=== PATIENT | male | born 1970 | race Caucasian/White ===

== ENCOUNTER 2018-04-02 15:24 | Emergency (ER) | payer MEDICAID, SELFPAY ==
[2018-04-02 15:25] VITALS: BP 125/78; PULSE 43; RESP 17; TEMP 35.5; O2SAT 98; BMI 28.4
--- NOTE | 2018-04-02 15:34 | EKG12_ITS ---
Test Reason : CP Blood Pressure : / mmHG Vent. Rate : 043 BPM Atrial Rate : 043 BPM P-R Int : 180 ms QRS Dur : 100 ms QT Int : 506 ms P-R-T Axes : 059 044 074 degrees QTc Int : 427 ms Marked sinus bradycardia Inferior infarct , age undetermined Abnormal ECG Confirmed by AUBREY NIELSON, ZACHARIAH ([id number]), multimedia editor ELLEN RODRIGUEZ ([id number]) on 04/03/2018 12:57:44 PM Referred By: DUY Confirmed By:ZACHARIAH BURGOS MD
--- NOTE | 2018-04-02 15:40 | RAD_ITS ---
STUDY: X-RAY CHEST REASON FOR EXAM: Male, 47 years old. Chest pain TECHNIQUE: Single AP portable view of the chest. COMPARISON: 05/22/2011 FINDINGS: EKG leads overlie the chest Lungs are expanded with superimposed interstitial edema and possible lingular infiltrate, follow-up recommended to assure resolution. Normal size heart. Normal mediastinum and augustin. Normal visualized pulmonary arteries. Normal visualized aortic arch and descending thoracic aorta. Normal visualized thoracic spine. Normal visualized ribs, clavicles, and shoulders. There is no demonstrated abnormality of the visualized soft tissue structures of the upper abdomen. RAD/Chest 1 View (Portable) IMPRESSION: Interstitial edema with likely infiltrate, follow-up recommended to assure resolution Electronically Signed: Ian Hendricks MD at 16:04 EDT , Service support ,
--- NOTE | 2018-04-02 15:45 | ED.DCSUM_ITS ---
- ER Visit Summary Date of Service: 04/02/18 Chief Complaint: Syncope History of Present Illness: The patient is a 47 M for schizophrenia for which currently is on no medications. He does not have a primary care physician. Patient was brought in by squad was called by the family due to the syncopal event. According to the patient's mother is giving most of the history he does not have a significant history of medical problems. Today he had a syncopal event. Inside the house. He had a second one in the garage. However he was not having any chest pain, headache or abdominal pain. He has not been recently ill. He did recently have a facial abscess drained at [place] [facility]. He denies any fever or melena. Physical Examination: Middle-aged male vital signs are stable his blood pressure is 125/78 his pulse ox is 98 and he is afebrile. He has bradycardic in the 40s but is maintaining good blood pressure with it. He is mentating with that. No airway compromise. H EENT exam unremarkable except for poor dentition. No signs of trauma. Pupils round reactive light. Equal and symmetrical. Neck nontender no meningismus. No lymphadenopathy. Lungs clear to auscultation bilaterally. Heart regular rhythm rate of about 45 no murmur. Chest wall nontender. Abdomen soft and nontender. Normal bowel sounds. No pulsatile mass. No masses. Nondistended. Soft. Moving all 4 extremities. Equal symmetrical radial pulses. Calves nontender without edema or cords. Back exam nontender. Neurologically he is awake and alert. He does follow commands. He has no focal motor deficits. Test Results: EKG shows a sinus bradycardia rate of 43. With no acute signs of HI or ischemia. Chest x-ray shows interstitial edema. Read both by myself the radiologist. CT of his brain without contrast shows a left frontal lobe mass about 2 cm. Small amount of edema. But no shift. I did discuss this with the family and they understand that we do not know currently if this is benign or malignant if the primary brain tumor or metastases. They understand only to be significant further evaluation of this and additional imaging. Reviewed by me read by the radiologist. EKG sinus bradycardia rate of 43. No dysrhythmia otherwise. No ischemia. White count elevated 14 H&H 15 and 46 no bands. Electrolytes unremarkable normal creatinine and gap. Troponin normal. Lactic acid 1.3. Emergency Department Course and Treatment: Middle-aged male with a syncopal event. Will undergo a cardiac workup. Treatment Plan: Due to the patient's brain mass on CT he will be transferred I spoke to the family they choose [facility]. I very spoken with the transfer line and they have accepted him. Disposition: Admission Impression: Acute syncope Sinus bradycardia Brain mass on CAT scan of uncertain etiology This note was generated with [employer] dictation software. It may contain incorrect words, spelling, and punctuation that were not noted in review of the chart prior to signing ED Disposition - Plan for ED Patient: Chief Complaint: Chest Pain Referrals: Care Physician,No Primary [Primary Care Provider] -
[2018-04-02 15:48] VITALS: O2SAT 99
[2018-04-02 15:48] LABS: Absolute Lymphocyte Count 1.64 X10^3/ul (0.83-4.51); Basophil# 0.04 X10^3/uL; Basophil% 0.3 % (0-1); Eosinophil# 0.21 X10^3/uL; Eosinophils% 1.5 % (0-5); Hematocrit 46.1 % (40-54); Hemoglobin 15.1 g/dl (13.0-16.5); Lymphocyte # 1.64 X10^3/ul (4.0); Lymphocyte % 11.4 % (19-41); Mean Corp Hgb Conc 32.8 g/gl (32-36); Mean Corpuscular Hgb 28.7 pg (27.0-32.0); Mean Corpuscular Volume 87.6 fL (80-94); Mean Platelet Vol. 8.9 fl (6.2-12.0); Monocyte# 0.58 X10^3/uL; Neutrophil # 11.95 X10^3/uL (2.7-7.7); Neutrophil % 82.7 % (47-70); Platelet Count 237 K/mm3 (150-450); RBC Distribution Width CV 13.7 % (11.6-14.6); Red Blood Count 5.26 M/mm3 (4.6-6.2); White Blood Count 14.4 K/mm3 (4.4-11.0)
[2018-04-02 15:49] LABS: POSITIVE COUNT NO; POSITIVE DIFFERENTIAL NO; POSITIVE MORPHOLOGY NO
[2018-04-02] MEDS: Aspirin 81 MG TAB.CHEW 324 MG PO (15:49)
[2018-04-02 16:06] LABS: Anion Gap 7 (5-15); BUN 11 mg/dL (7-18); BUN/Creat Ratio 13.3 RATIO (10-20); Calcium,Total 8.6 mg/dL (8.5-10.1); Chloride 105 mmol/L (98-107); Creatinine, Serum 0.83 mg/dL (0.70-1.30); EST Glomerular Filtration Rate 105 mL/min (>60); Est Glom Filt Rate - Afr Amer 126 mL/min (>60); Estimated Creatinine Clearance 104.16 ml/min; Glucose 147 mg/dL (74-106); Potassium 3.8 mmol/L (3.5-5.1); Sodium Level 138 mmol/L (136-145)
--- NOTE | 2018-04-02 16:09 | CT_ITS ---
STUDY: CT BRAIN WITHOUT CONTRAST REASON FOR EXAM: Male, 47 years old. Headache. Syncope. RADIATION DOSAGE (If Supplied By Facility): CTDIvol = ( 44.99 ) mGy, DLP = ( 812.98 ) mGycm TECHNIQUE: Transaxial CT imaging of the brain was performed without administration of intravenous contrast material. Individualized dose optimization techniques were used for this CT. COMPARISON: None. FINDINGS: There is a 2.0 x 2.0 x 1.8 cm rounded hypodensity with a thin mildly hyperdense surrounding rim in the left frontal lobe (image 25 series 2 and image 27 series 601). Further evaluation with a contrast-enhanced CT or MRI is recommended to evaluate for an intracranial mass. There is no acute bleed or infarct. There are normal white matter tracts. The ventricles are normal in configuration. There is no hydrocephalus. There is mild mucosal hypertrophy in the left ethmoid sinus. The visualized paranasal sinuses are otherwise clear. The mastoid air cells are well aerated. There is no skull fracture. CT/Brain/Head without Contrast IMPRESSION: 2.0 x 2.0 x 1.8 cm rounded hypodensity with a thin mildly hyperdense surrounding rim in the left frontal lobe. Further evaluation with a contrast-enhanced CT or MRI is recommended to evaluate for an intracranial mass. No acute bleed or infarct. Mild left ethmoid sinusitis. N.B. : The above information has been verbally conveyed by Brandon Gaytan to Fabricio Jose on 04/02/2018 16:38:47 (ET). Electronically Signed: Brandon Gaytan, at 16:32 EDT Tel , Service support ,
[2018-04-02 16:31] LABS: Lactic Acid 1.3 mmol/L (0.4-2.0)
[2018-04-02 16:33] VITALS: BMI 28.4
[2018-04-02 16:37] VITALS: BP 119/75; PULSE 45; RESP 18; O2SAT 98
[2018-04-02 17:03] VITALS: BP 148/90; PULSE 52; RESP 18; O2SAT 98
[2018-04-02 18:22] VITALS: BP 120/99; PULSE 65; RESP 18; O2SAT 97
[2018-04-02 18:45] VITALS: BP 120/77; PULSE 65; RESP 18; O2SAT 97
== END 2018-04-02 18:15 | disposition short-term general hospital (02) ==
PROVIDERS: Emergency Provider Emergency Medicine
DX: R55 Syncope and collapse (principal); R00.1 Bradycardia, unspecified; G93.89 Other specified disorders of brain; F20.9 Schizophrenia, unspecified; Z72.0 Tobacco use
CPT/HCPCS: 70450; 71045; 80048; 83605; 84484; 85025; 93005; 99285

== ENCOUNTER 2018-04-13 19:39 | Inpatient (IN) | payer MEDICAID, SELFPAY ==
[2018-04-13 19:57] VITALS: BP 130/88; PULSE 65; RESP 20; TEMP 36.6; O2SAT 94; BMI 27.5
[2018-04-13 21:58] VITALS: BMI 25.6
[2018-04-13 22:00] VITALS: BP 124/87; PULSE 63; RESP 18; TEMP 36.6; O2SAT 95
[2018-04-13] MEDS: Atorvastatin Calcium 20 MG Tablet PO (22:27)
[2018-04-13] MEDS: levETIRAcetam 1,000 MG Tablet 1000 MG PO (22:27)
--- NOTE | 2018-04-14 00:56 | NURSING ---
pt resting quietly and family member at bedside for safety. Pt impulsive and has set off alarm several times with family reassuring pt to await staff assistance.
[2018-04-14 06:05] LABS: Hematocrit 45.4 % (40-54); Hemoglobin 15.2 g/dl (13.0-16.5); Mean Corp Hgb Conc 33.5 g/gl (32-36); Mean Corpuscular Hgb 29.1 pg (27.0-32.0); Mean Platelet Vol. 9.2 fl (6.2-12.0); Platelet Count 232 K/mm3 (150-450); RBC Distribution Width CV 14.6 % (11.6-14.6); RBC Distribution Width SD 46.4 fl (35.1-43.9); Red Blood Count 5.22 M/mm3 (4.6-6.2); White Blood Count 13.3 K/mm3 (4.4-11.0)
[2018-04-14 06:09] LABS: International Normalized Ratio 0.9; Prothrombin Time (Protime)PT. 12.4 SECONDS (11.7-14.9)
[2018-04-14 06:25] LABS: Scan Indicated on CBC? Y/N NO
[2018-04-14 06:33] LABS: Anion Gap 9 (5-15); BUN 27 mg/dL (7-18); BUN/Creat Ratio 41.5 RATIO (10-20); Calcium,Total 8.6 mg/dL (8.5-10.1); Chloride 104 mmol/L (98-107); Creatinine, Serum 0.65 mg/dL (0.70-1.30); EST Glomerular Filtration Rate 139 mL/min (>60); Est Glom Filt Rate - Afr Amer 168 mL/min (>60); Estimated Creatinine Clearance 150.89 ml/min; Glucose 82 mg/dL (74-106); Potassium 4.2 mmol/L (3.5-5.1); Sodium Level 142 mmol/L (136-145)
[2018-04-14 08:19] VITALS: O2SAT 96
[2018-04-14 09:21] VITALS: BP 110/70; PULSE 73; RESP 18; TEMP 36.6; O2SAT 95
[2018-04-14] MEDS: levETIRAcetam 1,000 MG Tablet 1000 MG PO ×2 (09:25→20:24)
[2018-04-14] MEDS: Enoxaparin 40 MG/0.4 ML Syringe SC (09:26)
--- NOTE | 2018-04-14 10:07 | PCM.HP.COS ---
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 He has a history of HTN, HLD, and schizophrenia. He was admitted to [facility] on 04/03 with nausea, vomiting, and dizziness. MRI showed a left cerebellar infarct, and a left frontal lobe and basal ganglia intraaxial lesions, which was suspicious for a glioblastoma. On 04/07 a left stereotactic craniotomy for tissue removal and biopsy. 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 EEG was done and supported the diagnosis of bilateral cortical dysfunction, worse on the left, there was no epileptiform activity or seizures noted. A BENNETT was preformed and showed no shunting, thrombus or endocarditis. He was started on Keppra for Seizure preventions and Decadron. He has some right sided weakness of his upper extremity. requires the assistance of one with the use of a walker. He lives with his mother and brother in a two story home with 12 steps to get to his bedroom area. He was previously completely functionally independent and is admitted to the rehab unit in order to restore his previous level of functional independence. Past Medical History Past Medical History (Chronic Problems): Chronic Problems Tobacco use (Chronic) Allergies No Known Allergies Allergy (Verified 04/02/18 15:28) Home Medications: Ambulatory Orders Medication Instructions Recorded Atorvastatin Calcium [Lipitor] 20 mg PO QHS 04/13/18 Dexamethasone [Decadron] 2 mg PO BID 04/13/18 levETIRAcetam tablet [Keppra 1,000 mg PO Q12H 04/13/18 tablet] Surgical History: - - Right hand surgery Psychiatric History: Schizophrenia Lives: With Family Smoking Status: Light Smoker (<10/day) Alcohol: None Drugs: None Review of Systems Constitutional: Denies: Chills, Fever, Weight Change HEENT: Denies: Head Aches, Sinus Congestion, Sinus Drainage Cardiovascular: Denies: Chest Pain, Palpitations Respiratory: Denies: Cough, Shortness of breath at rest, Sputum production Gastrointestinal: Denies: Abdominal Pain, Nausea, Vomiting Genitourinary: Denies: Dysuria Musculoskeletal: Denies: Joint Pain, Joint Tenderness Skin: Denies: Rash, Wounds Neurological: Denies: Numbness, Tingling, Focal weakness Psychiatric: Denies: Anxiety, Depression, Homicidal Ideations, Suicidal Ideations Hematologic/ Lymphatic: Denies: Easy Bruising, Easy Bleeding VTE Information - Inpt Only VTE Present on Admission: No VTE Mechan Device Prophylaxis: SCD's, Knee High CHRISTINE Hose VTE Pharm Prophylaxis ordered?: Yes - Physical Exam General: Alert, Oriented x3, Cooperative HEENT: Atraumatic, PERRLA, EOMI, Normocephalic Neck: Supple, No JVD, Negative Carotid Bruits Lungs: Clear to auscultation, Normal air movement Cardiovascular: Regular rate, No murmurs Abdomen: Bowel Sounds Present, Soft, Non Tender Extremities: No edema, Capillary Refill Less than 3 Seconds Skin: No rashes, No breakdown Musculoskeletal: No Tenderness to Palpation of Joints or Extremities Neurological: Cranial nerves II-XII grossly intact Psych/Mental Status: Normal Affect, Appropriate Vital Signs Temp Pulse Resp BP Pulse Ox 97.9 F 73 18 110/70 95 04/14/18 09:21 04/14/18 09:21 04/14/18 09:21 04/14/18 09:21 04/14/18 09:21 Oxygen Delivery Method Room Air Weight: 82.01 kg Body Mass Index (BMI) 28.7 Intake and Output for Last 24 Hours 04/12/18 04/13/18 04/14/18 23:59 23:59 23:59 Intake Total 800 / 800 Output Total 600 / 600 Balance 200 / 200 Laboratory Tests Past 24 Hrs 04/14/18 04/14/18 04/14/18 05:05 05:05 05:05 WBC 13.3 H RBC 5.22 Hgb 15.2 Hct 45.4 MCV 87.0 MCH 29.1 MCHC 33.5 RDW 14.6 RDW Differential 46.4 H Plt Count 232 MPV 9.2 PT 12.4 INR 0.9 Sodium 142 Potassium 4.2 Chloride 104 Carbon Dioxide 29.0 Anion Gap 9 BUN 27 H Creatinine 0.65 L Estim Creat Clear Calc 150.89 Est GFR (MDRD) Af Amer 168 Est GFR (MDRD) Non-Af 139 BUN/Creatinine Ratio 41.5 H Glucose 82 Calcium 8.6 Active Medications Hydrocodone Bitart/Acetaminophen ([place] 5mg-325mg) 1 tablet PO Q6H PRN PRN PRN Reason: MOD-SEVERE PAIN (4-10/10) Atorvastatin Calcium (Lipitor) 20 mg PO QHS [facility] Last Admin: 04/13/18 22:27 Dose: 20 mg Bisacodyl (Dulcolax) 10 mg RECTAL .PRN X 1 PRN PRN Reason: Constipation [facility] Last Admin: 04/14/18 09:25 Dose: 2 mg Enoxaparin Sodium (Lovenox) 40 mg SC DAILY [facility] Last Admin: 04/14/18 09:26 Dose: 40 mg Levetiracetam (Keppra Tablet) 1,000 mg PO BID [facility] Last Admin: 04/14/18 09:25 Dose: 1,000 mg Lorazepam (Ativan) 0.25 mg PO QHS PRN PRN PRN Reason: AGITATION Magnesium Hydroxide (Milk Of Magnesia) 30 ml PO .PRN X 1 PRN PRN Reason: Constipation Assessment/Plan Debility s/p Left PICA distribution cerebellar infarct, and resection of glioblastoma, grade IV. Goal of rehab is evangelical of functional independence. Plan: - Physical therapy for gait and balance - Occupational Therapy for ADLs - Speech therapy - As needed analgesics - Bowel protocol - Stroke prevention on ASA, and Statin - DVT prophylaxis: SCDs, Lovenox - Hypertension - currently not on any medications, BP stable, Keep BP < 130/80 mmHg - BENNETT showed no shunting, Thrombus, or evidence of endocarditis - Hyperlipidemia - Continue home dose of atorvastatin, Chol = 192, LDL = 131 - HA1c = 5.8, Goal Hba1c <7% - Brain tumor s/p resection, Keppra 500mg BID for sz ppx, and Decadron 2mg BID - Hx of Schizophrenia - stable without psychosis noted at this time - Left eye => Double vision - eye patch as needed, slight Ptosis continue to monitor if need will order eye drops
--- NOTE | 2018-04-14 12:09 | PN_ITS ---
Subjective: Patient is a 47-year-old male with a history of hyperlipidemia. He was admitted to the rehab unit for rehab after he had surgery for a brain tumor status post resection. Hospitalist service was consulted for medical management. Seen and examined. He was sitting comfortably in a chair and had no complaints. He denies any fever or chills, cough or chest pain, shortness of breath, abdominal pain, diarrhea vomiting. He has been tolerating rehab well. Review of systems otherwise negative. Vitals/I&O's: Vital Signs Temp Pulse Resp BP Pulse Ox 97.9 F 73 18 110/70 95 04/14/18 09:21 04/14/18 09:21 04/14/18 09:21 04/14/18 09:21 04/14/18 09:21 Oxygen Delivery Method Room Air Weight: 180 lb 12.817 oz Body Mass Index (BMI) 28.7 Intake and Output for Last 24 Hours 04/12/18 04/13/18 04/14/18 23:59 23:59 23:59 Intake Total 800 / 800 Output Total 600 / 600 Balance 200 / 200 General: Alert, Oriented x3, Cooperative, No apparent distress HEENT: Atraumatic, PERRLA, EOMI, Normocephalic Oral: Moist Mucosa Neck: Supple, No JVD, Negative Carotid Bruits Lungs: Clear to auscultation, Normal air movement, No rhonchi, No wheeze, No rales Cardiovascular: Regular rate, Regular Rhythm, Normal S1, Normal S2, No murmurs Abdomen: Bowel Sounds Present, Soft, Non Tender, Non-Distended, No Hepato- splenomegaly Extremities: No edema, Capillary Refill Less than 3 Seconds Skin: - - healing scar on forehead, with juan manuel in place. Musculoskeletal: No Tenderness to Palpation of Joints or Extremities Lymphatic: No Cervical, Supraclavicular, or Inguinal Adenopathy Neurological: Cranial nerves II-XII grossly intact, Motor Exam 5/5 strength throughout Psych/Mental Status: Normal Affect, Appropriate, Alert and oriented to time, place, person, mood and affect Laboratory Results 04/14/18 05:05: WBC 13.3 H, RBC 5.22, Hgb 15.2, Hct 45.4, MCV 87.0, MCH 29.1, MCHC 33.5, RDW 14.6, RDW Differential 46.4 H, Plt Count 232, MPV 9.2 04/14/18 05:05: PT 12.4, INR 0.9 04/14/18 05:05: Sodium 142, Potassium 4.2, Chloride 104, Carbon Dioxide 29.0, Anion Gap 9, BUN 27 H, Creatinine 0.65 L, Estim Creat Clear Calc 150.89, Est GFR (MDRD) Af Amer 168, Est GFR (MDRD) Non-Af 139, BUN/Creatinine Ratio 41.5 H, Glucose 82, Calcium 8.6 Current Medications Hydrocodone Bitart/Acetaminophen ([place] 5mg-325mg) 1 tablet PO Q6H PRN PRN PRN Reason: MOD-SEVERE PAIN (4-1010) Atorvastatin Calcium (Lipitor) 20 mg PO QHS [facility] Last Admin: 04/13/18 22:27 Dose: 20 mg Bisacodyl (Dulcolax) 10 mg RECTAL .PRN X 1 PRN PRN Reason: Constipation [facility] Last Admin: 04/14/18 09:25 Dose: 2 mg Enoxaparin Sodium (Lovenox) 40 mg SC DAILY [facility] Last Admin: 04/14/18 09:26 Dose: 40 mg Levetiracetam (Keppra Tablet) 1,000 mg PO BID [facility] Last Admin: 04/14/18 09:25 Dose: 1,000 mg Lorazepam (Ativan) 0.25 mg PO QHS PRN PRN PRN Reason: AGITATION Magnesium Hydroxide (Milk Of Magnesia) 30 ml PO .PRN X 1 PRN PRN Reason: Constipation Medical Necessity - Tobacco Use Smoking Status: Light Smoker (<10/day) Assessment/Plan 1. Brain tumor s/p resection * stable. * having intensive physical therapy * on Keppra for seizures * per nurse, tumor suspected to be glioblastoma, but awaiting pathology confirmation. * on PO dexamethasone * on [place] for pain 2. Hyperlipidemia * on atorvastatin * 3. DVT prophylaxis: lovenox Thank you for the courtesy of the consult. We will continue to follow with you. Code Visit Inpatient E&M: 53924 Subs Hosp L2
--- NOTE | 2018-04-14 14:40 | CT_ITS ---
STUDY: CT BRAIN WITHOUT CONTRAST REASON FOR EXAM: Male, 47 years old. CVA, craniotomy. RADIATION DOSAGE (If Supplied By Facility): CTDIvol = ( 44.99 ) mGy, DLP = ( 880.47 ) mGycm TECHNIQUE: Transaxial CT imaging of the brain was performed without administration of intravenous contrast material. Coronal and sagittal 2-D MPR Individualized dose optimization techniques were used for this CT. COMPARISON: CT head 06/11/2011, 04/02/2018. FINDINGS: Stable chronic prominent mucous retention cyst within the left posterior ethmoid sinuses. Paranasal sinuses acutely clear. Mastoid air cells and middle ear cavities clear. Craniofacial osseous structures acutely intact. Left frontal craniotomy. Extra cranial soft tissues including orbital contents exhibit no acute process. In the operative bed left frontal, irregular oval low density partially fluid-filled cavity measures approximately 3.5 x 2.8 x 2.7 cm, containing a tiny focus of gas, minimal hyperdense soft tissue at its inferior most margin, no acute bleed, minimal subdural subacute blood products immediately deep to the craniotomy, no associated mass effect. CT/Brain/Head without Contrast IMPRESSION: Left frontal resection cavity as described above. No evidence of acute postoperative complication. There is no acute intracranial bleed, midline shift or other significant mass effect. Electronically Signed: David Jones, at 15:58 EDT Tel , Service support ,
[2018-04-14] MEDS: Atorvastatin Calcium 40 MG Tablet PO (21:25)
[2018-04-14 22:00] VITALS: BP 119/67; PULSE 65; RESP 18; TEMP 37; O2SAT 95
[2018-04-15 07:50] VITALS: BP 115/72; PULSE 60; RESP 18; TEMP 36.9; O2SAT 96
[2018-04-15] MEDS: Enoxaparin 40 MG/0.4 ML Syringe SC (08:06)
[2018-04-15] MEDS: Aspirin 81 MG TAB.CHEW PO (08:06)
[2018-04-15] MEDS: levETIRAcetam 1,000 MG Tablet 1000 MG PO ×2 (08:06→20:10)
[2018-04-15] MEDS: Senna/Docusate Sodium 1 Tablet 2 TABLET PO ×2 (10:12→20:11)
--- NOTE | 2018-04-15 10:15 | PCM.RU.PYE ---
Admission Information Status Changes from Prescreening?: No changes Identified Actual Problem List:: Falls, Mobility Impaired, Self Care Deficit, Ineffective Communication Potential Problem List:: DVT, Bleeding, Infection, UTI, Aspiration, Falls, Skin Integrity, Depression Risk of Complications DVT: LMWH, CHRISTINE Hose, Sequential Compression Device Bleeding: Monitor Lab Values, Nursing to Teach Precautions for anti-coagulation therapy., Wound, if applicable, to be assessed every shift., Stroke patients assessed for lethargy or change in status. Infection: Clinical Staff to Monitor for S/S of infection:, S/S of infection include fever, redness, warmth, etc. Urinary Tract Infection: Monitor for frequency, burning, discomfort, or incontinence., Nursing will obtain urine sample for urinalysis and C&S when ordered. Aspiration: Clinical staff will monitor for coughing, drooling, congestion., Speech will evaluate swallowing and dsyphasia., Nursing will monitor patient swallowing during meals. Falls: Patient will be evaluated for Fall Precautions, Patient will be placed on Fall Precautions as indicated per protocol. Skin Breakdown: Nursing will assess skin daily using assessment tool., Nursing will place on Skin Breakdown Precautions as indicated. Pain: Clinical staff will assess patient's pain level per protocol., Medications will be given, if needed, and the pain level reassessed., Other methods: Massage, distraction, decrease stimulus, etc. used PRN. Plan of Care Patient requires physician specializing in physical medicine and rehab oversight to provide close medical supervision of rehab issues including: Pain Management, Sleep Problems, Bowel and Bladder, Medical and co-morbidity Management, DVT prophylaxis, Rehabilitation Leadership, Coordination of treatment team Patient needs Physical Therapy: For a minimum of 1 hour, At least 5 out of 7 days Patient needs Physical Therapy to improve:: Mobility, Mobility, Mobility, Strengthening, Transfers, Stretching, ROM, Endurance, Stairs, Gait, Balance Patient needs Occupational Therapy: For a minimum of 1 hour, At least 5 out of 7 days Patient needs Occupational Therapy to improve ADL's incl.: Eating, Grooming, Bathing, Dressing, Toileting, Toilet transfers, Community Reintegration, Higher functioning activities, Household tasks, Adaptive Equipment, Splinting, Other activities as determined Patient requires speech therapy: For a minimum of 1 hour, At least 5 out of 7 days Patient requires speech therapy for: Swallowing, Cognition, Language Skills, Compensatory Strategies Patient requires 07/04 Rehabilitation Nursing for: Pain Issues, Identifying and preventing risk factors, Monitoring and reporting current medical conditions, Assisting with ambulation, transfer, and all ADL's, Teaching patients about disease process and medications, Family teaching, Providing safe environment, Bowel and Bladder Issues, Skin integrity, Medication Management Patient needs Chief Counsel/ Case Management for: Discharge Planning, Arranging Home Equipment or Services, Family Interventions Patient needs Dietary and Nutrition Services for: Adequate Nutrition, Nutritional Supplements, Nutritional Education Goals Patient will remain: free from falls, or injury at time of discharge. Patient will perform bed mobility at: MOD I level of assist. Patient will complete transfers from bed to chair at: MOD I level of assist. Patient will ambulate: 100 feet, with MOD I assist, with LRD Patient will complete upper body dressing at: MOD I level of assist. Patient will complete lower body dressing at: MOD I level of assist. Patient will complete toileting at: MOD I level of assist. Patient will perform bathing at: MOD I level of assist. Patient will complete grooming at: MOD I level of assist. Patient will complete home management skills at: MOD I level of assist. Patient will achieve: 12 stairs, at MOD I assist Patient will have pain level of: of 3 or less Patient's skin will: remain intact, free from infection. Patient will receive: adequate nutrition. Discharge Planning Pt Prognosis for Sig. Practical Improv. w/in Reasonable Time: Good Estimated Length of stay (days): 10 Anticipated D/C Destination: Home with Outpt Therapy
--- NOTE | 2018-04-15 10:34 | PCM.PN.NEU ---
Subjective: Patient seen and examined. No new complaints, Tolerating therapy. Denies any blurry vision, double vision, or new focal deficits. Tolerating regular diet, no issues with GI/. - Physical Exam General: Alert, Oriented x3, Cooperative HEENT: Atraumatic, PERRLA, EOMI, Normocephalic Neck: Supple, No JVD, Negative Carotid Bruits Lungs: Clear to auscultation, Normal air movement Cardiovascular: Regular rate, No murmurs Abdomen: Bowel Sounds Present, Soft, Non Tender Extremities: No edema, Capillary Refill Less than 3 Seconds Skin: No rashes, No breakdown Musculoskeletal: No Tenderness to Palpation of Joints or Extremities Neurological: Cranial nerves II-XII grossly intact Psych/Mental Status: Normal Affect, Appropriate, Alert and oriented to time, place, person, mood and affect Vital Signs Temp Pulse Resp BP Pulse Ox 98.4 F 60 18 115/72 96 04/15/18 07:50 04/15/18 07:50 04/15/18 07:50 04/15/18 07:50 04/15/18 07:50 Oxygen Delivery Method Room Air Weight: 82 kg Body Mass Index (BMI) 27.5 Intake and Output for Last 24 Hours 04/13/18 04/14/18 04/15/18 23:59 23:59 23:59 Intake Total 1280 / 1280 680 / 680 Output Total 1600 / 1600 1999 / 1999 Balance -320 / -320 -1320 / -1320 Active Medications Hydrocodone Bitart/Acetaminophen ([place] 5mg-325mg) 1 tablet PO Q6H PRN PRN PRN Reason: MOD-SEVERE PAIN (4-10/10) Aspirin (Aspirin, Baby) 81 mg PO DAILY@0800 [facility] Last Admin: 04/15/18 08:06 Dose: 81 mg Atorvastatin Calcium (Lipitor) 40 mg PO QHS [facility] Last Admin: 04/14/18 21:25 Dose: 40 mg Bisacodyl (Dulcolax) 10 mg RECTAL .PRN X 1 PRN PRN Reason: Constipation Dexamethasone (Decadron) 2 mg PO BIDCM [facility] Last Admin: 04/15/18 08:06 Dose: 2 mg Enoxaparin Sodium (Lovenox) 40 mg SC DAILY [facility] Last Admin: 04/15/18 08:06 Dose: 40 mg Levetiracetam (Keppra Tablet) 1,000 mg PO BID [facility] Last Admin: 04/15/18 08:06 Dose: 1,000 mg Lorazepam (Ativan) 0.25 mg PO QHS PRN PRN PRN Reason: AGITATION Magnesium Hydroxide (Milk Of Magnesia) 30 ml PO .PRN X 1 PRN PRN Reason: Constipation Senna/Docusate Sodium (Senokot-S, Melisa-Colace) 2 tablet PO BID [facility] Last Admin: 04/15/18 10:12 Dose: 2 tablet Medical Necessity - Tobacco Use Smoking Status: Light Smoker (<10/day) Assessment/Plan Debility s/p Left PICA distribution cerebellar infarct, and resection of glioblastoma, grade IV. Goal of rehab is catholic of functional independence. Plan: - Physical therapy for gait and balance - Occupational Therapy for ADLs - Speech therapy - As needed analgesics - Bowel protocol - Stroke prevention on ASA, and Statin - DVT prophylaxis: SCDs, Lovenox - Hypertension - currently not on any medications, BP stable, Keep BP < 130/80 mmHg - BENNETT showed no shunting, Thrombus, or evidence of endocarditis - Hyperlipidemia - Continue home dose of atorvastatin, Chol = 192, LDL = 131 - HA1c = 5.8, Goal Hba1c <7% - Brain tumor s/p resection, Keppra 500mg BID for sz ppx, and Decadron 2mg BID - Hx of Schizophrenia - stable without psychosis noted at this time - Left eye => Double vision - eye patch as needed, slight Ptosis continue to monitor if need will order eye drops
--- NOTE | 2018-04-15 10:37 | PN.NEURO_ITS ---
Subjective: Patient seen and examined. No new complaints, Tolerating therapy. Denies any blurry vision, double vision, or new focal deficits. Tolerating regular diet, no issues with GI/. - Physical Exam General: Alert, Oriented x3, Cooperative HEENT: Atraumatic, PERRLA, EOMI, Normocephalic Neck: Supple, No JVD, Negative Carotid Bruits Lungs: Clear to auscultation, Normal air movement Cardiovascular: Regular rate, No murmurs Abdomen: Bowel Sounds Present, Soft, Non Tender Extremities: No edema, Capillary Refill Less than 3 Seconds Skin: No rashes, No breakdown Musculoskeletal: No Tenderness to Palpation of Joints or Extremities Neurological: Cranial nerves II-XII grossly intact Psych/Mental Status: Normal Affect, Appropriate, Alert and oriented to time, place, person, mood and affect Vital Signs Temp Pulse Resp BP Pulse Ox 98.4 F 60 18 115/72 96 04/15/18 07:50 04/15/18 07:50 04/15/18 07:50 04/15/18 07:50 04/15/18 07:50 Oxygen Delivery Method Room Air Weight: 82 kg Body Mass Index (BMI) 27.5 Intake and Output for Last 24 Hours 04/13/18 04/14/18 04/15/18 23:59 23:59 23:59 Intake Total 1280 / 1280 680 / 680 Output Total 1600 / 1600 1999 / 1999 Balance -320 / -320 -1320 / -1320 Active Medications Hydrocodone Bitart/Acetaminophen ([place] 5mg-325mg) 1 tablet PO Q6H PRN PRN PRN Reason: MOD-SEVERE PAIN (4-10/10) Aspirin (Aspirin, Baby) 81 mg PO DAILY@0800 [facility] Last Admin: 04/15/18 08:06 Dose: 81 mg Atorvastatin Calcium (Lipitor) 40 mg PO QHS [facility] Last Admin: 04/14/18 21:25 Dose: 40 mg Bisacodyl (Dulcolax) 10 mg RECTAL .PRN X 1 PRN PRN Reason: Constipation Dexamethasone (Decadron) 2 mg PO BIDCM [facility] Last Admin: 04/15/18 08:06 Dose: 2 mg Enoxaparin Sodium (Lovenox) 40 mg SC DAILY [facility] Last Admin: 04/15/18 08:06 Dose: 40 mg Levetiracetam (Keppra Tablet) 1,000 mg PO BID [facility] Last Admin: 04/15/18 08:06 Dose: 1,000 mg Lorazepam (Ativan) 0.25 mg PO QHS PRN PRN PRN Reason: AGITATION Magnesium Hydroxide (Milk Of Magnesia) 30 ml PO .PRN X 1 PRN PRN Reason: Constipation Senna/Docusate Sodium (Senokot-S, Melisa-Colace) 2 tablet PO BID [facility] Last Admin: 04/15/18 10:12 Dose: 2 tablet Medical Necessity - Tobacco Use Smoking Status: Light Smoker (<10/day) Assessment/Plan Debility s/p Left PICA distribution cerebellar infarct, and resection of glioblastoma, grade IV. Goal of rehab is evangelical of functional independence. Plan: - Physical therapy for gait and balance - Occupational Therapy for ADLs - Speech therapy - As needed analgesics - Bowel protocol - Stroke prevention on ASA, and Statin - DVT prophylaxis: SCDs, Lovenox - Hypertension - currently not on any medications, BP stable, Keep BP < 130/80 mmHg - BENNETT showed no shunting, Thrombus, or evidence of endocarditis - Hyperlipidemia - Continue home dose of atorvastatin, Chol = 192, LDL = 131 - HA1c = 5.8, Goal Hba1c <7% - Brain tumor s/p resection, Keppra 500mg BID for sz ppx, and Decadron 2mg BID - Hx of Schizophrenia - stable without psychosis noted at this time - Left eye => Double vision - eye patch as needed, slight Ptosis continue to monitor if need will order eye drops
[2018-04-15 15:25] VITALS: O2SAT 97
[2018-04-15 19:48] VITALS: BP 115/73; PULSE 65; RESP 18; TEMP 36.6; O2SAT 93
[2018-04-15] MEDS: Atorvastatin Calcium 40 MG Tablet PO ×2 (20:09→20:10)
--- NOTE | 2018-04-15 20:35 | NURSING ---
pt attempted to get out of bed to look out the window. Alarms set off and nurse repositioned pt in bed and explained the policy for staff assistance to get out of bed. Pt shook his head and nurse brought pt coffee to drink in bed. Nurse set pt up in bed to look at bedside book. Pt denied toileting needs and stated he would stay in bed. Family at bedside and nurse reoriented family to call light system and stressed the importance of staff assistance on this floor to enable pt safety. Reinforcement needs to be administered for pt's rotating family 1:1 care overnight.
--- NOTE | 2018-04-16 04:40 | NURSING ---
Pt setting off alarm several times. Finally, pt asks for a cup of coffee after toileting. Family member came to nurses station stating pt was disturbed by sound of air system. Pt finally settled down after staff chasing after set off alarm for 2 hours. Pt is resting quietly in bed at this time.
[2018-04-16 06:25] VITALS: O2SAT 94
[2018-04-16 09:16] VITALS: BP 121/67; PULSE 68; RESP 18; TEMP 36.4; O2SAT 94
[2018-04-16] MEDS: levETIRAcetam 1,000 MG Tablet 1000 MG PO ×2 (09:59→20:34)
[2018-04-16] MEDS: Enoxaparin 40 MG/0.4 ML Syringe SC (09:59)
[2018-04-16] MEDS: Aspirin 81 MG TAB.CHEW PO (09:59)
[2018-04-16] MEDS: Divalproex Sodium 250 MG Tablet 500 MG PO ×2 (10:00→16:50)
--- NOTE | 2018-04-16 15:11 | CASEMGMT ---
Team meeting held. Patient present as well as patient family. No discharge date set at this time. Patient to continue with further care and treatment on the Inpatient Rehab Unit. Patient plans to discharge home with family at time of discharge. Support given. Will continue to follow. Re-team patient next week. Roxi RIOS, MEDICAL CASE MANAGER
--- NOTE | 2018-04-16 16:12 | PCM.PN.NEU ---
Subjective: Staffed in team meeting. Family at bedside, questions answered. With Physical therapy, patient requires close by stand by assist for getting in and out of bed, and standing, he is very impulsive and moves very quickly, so staff needs to be very careful when working with him. He requires a light hand for stability. He walks with a walker around the unit several times, he then walked around the unit without the walker and had several loss of balance, he was able to catch himself and recover. Today they will try a cane and see how well he does. He has gone up and down 10 steps with a light hand. With Occupational therapy, He is able to do all his own personal care, requiring a light hand for balance when walking to the bathroom and getting in the shower it self then he can handle things from there. With Speech therapy, they are working on memory, language, and attention. They will continue to assist him in these areas. They have concerns for his awareness of what he needs at times he is unable to do this as of yet. With Nursing, showing some signs of depression, will change his Keppra to Depakote, since it is a mood stabilize and will help control possible seizures activity. - Physical Exam General: Alert, Oriented x3, Cooperative HEENT: Atraumatic, PERRLA, EOMI, Normocephalic Neck: Supple, No JVD, Negative Carotid Bruits Lungs: Clear to auscultation, Normal air movement Cardiovascular: Regular rate, No murmurs Abdomen: Bowel Sounds Present, Soft, Non Tender Extremities: No edema, Capillary Refill Less than 3 Seconds Skin: No rashes, No breakdown Musculoskeletal: No Tenderness to Palpation of Joints or Extremities Neurological: Cranial nerves II-XII grossly intact Psych/Mental Status: Normal Affect, Appropriate, Alert and oriented to time, place, person, mood and affect Vital Signs Temp Pulse Resp BP Pulse Ox 97.5 F L 68 18 121/67 H 94 04/16/18 09:16 04/16/18 09:16 04/16/18 09:16 04/16/18 09:16 04/16/18 09:16 Oxygen Delivery Method Room Air Weight: 82 kg Body Mass Index (BMI) 27.5 Intake and Output for Last 24 Hours 04/14/18 04/15/18 04/16/18 23:59 23:59 23:59 Intake Total 1280 / 1280 1100 / 1100 240 / 240 Output Total 1600 / 1600 1999 / 1999 Balance -320 / -320 -900 / -900 240 / 240 Active Medications Hydrocodone Bitart/Acetaminophen ([place] 5mg-325mg) 1 tablet PO Q6H PRN PRN PRN Reason: MOD-SEVERE PAIN (4-10/10) Aspirin (Aspirin, Baby) 81 mg PO DAILY@0800 [facility] Last Admin: 04/16/18 09:59 Dose: 81 mg Atorvastatin Calcium (Lipitor) 40 mg PO QHS [facility] Last Admin: 04/15/18 20:10 Dose: 40 mg Bisacodyl (Dulcolax) 10 mg RECTAL .PRN X 1 PRN PRN Reason: Constipation [facility] Admin: 04/16/18 09:59 Dose: 2 mg Dival[facility]ex Sodium ([facility]ote) [facility] Stop: 04/18/18 17:01 Last Admin: 04/16/18 10:00 Dose: 500 mg Divalproex Sodium (Depakote) 500 mg PO TIIAM [facility] Enoxaparin Sodium (Lovenox) 40 mg SC DAILY [facility] Last Admin: 04/16/18 09:59 Dose: 40 mg Levetiracetam (Keppra Tablet) 1,000 mg PO BID [facility] Stop: 04/18/18 22:01 Last Admin: 04/16/18 09:59 Dose: 1,000 mg Lorazepam (Ativan) 0.25 mg PO QHS PRN PRN PRN Reason: AGITATION Magnesium Hydroxide (Milk Of Magnesia) 30 ml PO .PRN X 1 PRN PRN Reason: Constipation Senna/Docusate Sodium (Senokot-S, Melisa-Colace) 2 tablet PO BID [facility] Last Admin: 04/16/18 09:04 Dose: Not Given Medical Necessity - Tobacco Use Smoking Status: Light Smoker (<10/day) Assessment/Plan Debility s/p Left PICA distribution cerebellar infarct, and resection of glioblastoma, grade IV. Goal of rehab is tenriism of functional independence. Plan: - Physical therapy for gait and balance - Occupational Therapy for ADLs - Speech therapy - As needed analgesics - Bowel protocol - Stroke prevention on ASA, and Statin - DVT prophylaxis: SCDs, Lovenox - Hypertension - currently not on any medications, BP stable, Keep BP < 130/80 mmHg - BENNETT showed no shunting, Thrombus, or evidence of endocarditis - Hyperlipidemia - Continue home dose of atorvastatin, Chol = 192, LDL = 131 - HA1c = 5.8, Goal Hba1c <7% - Brain tumor s/p resection, Keppra 500mg BID for sz ppx, and Decadron 2mg BID, => change Keppra to Depakote 1,000 mg BID x 3 days then increase Depakote to 1,000mg TID. Keep Keppra on board for 3 days with Depakote, then d/c - Hx of Schizophrenia - stable without psychosis noted at this time - Left eye => Double vision - eye patch as needed, slight Ptosis continue to monitor if need will order eye drops
--- NOTE | 2018-04-16 16:24 | PN.NEURO_ITS ---
Subjective: Staffed in team meeting. Family at bedside, questions answered. With Physical therapy, patient requires close by stand by assist for getting in and out of bed , and standing, he is very impulsive and moves very quickly, so staff needs to be very careful when working with him. He requires a light hand for stability. He walks with a walker around the unit several times, he then walked around the unit without the walker and had several loss of balance, he was able to catch himself and recover. Today they will try a cane and see how well he does. He has gone up and down 10 steps with a light hand. With Occupational therapy, He is able to do all his own personal care, requiring a light hand for balance when walking to the bathroom and getting in the shower it self then he can handle things from there. With Speech therapy, they are working on memory, language, and attention. They will continue to assist him in these areas. They have concerns for his awareness of what he needs at times he is unable to do this as of yet. With Nursing, showing some signs of depression, will change his Keppra to Depakote, since it is a mood stabilize and will help control possible seizures activity. - Physical Exam General: Alert, Oriented x3, Cooperative HEENT: Atraumatic, PERRLA, EOMI, Normocephalic Neck: Supple, No JVD, Negative Carotid Bruits Lungs: Clear to auscultation, Normal air movement Cardiovascular: Regular rate, No murmurs Abdomen: Bowel Sounds Present, Soft, Non Tender Extremities: No edema, Capillary Refill Less than 3 Seconds Skin: No rashes, No breakdown Musculoskeletal: No Tenderness to Palpation of Joints or Extremities Neurological: Cranial nerves II-XII grossly intact Psych/Mental Status: Normal Affect, Appropriate, Alert and oriented to time, place, person, mood and affect Vital Signs Temp Pulse Resp BP Pulse Ox 97.5 F L 68 18 121/67 H 94 04/16/18 09:16 04/16/18 09:16 04/16/18 09:16 04/16/18 09:16 04/16/18 09:16 Oxygen Delivery Method Room Air Weight: 82 kg Body Mass Index (BMI) 27.5 Intake and Output for Last 24 Hours 04/14/18 04/15/18 04/16/18 23:59 23:59 23:59 Intake Total 1280 / 1280 1100 / 1100 240 / 240 Output Total 1600 / 1600 1999 / 1999 Balance -320 / -320 -900 / -900 240 / 240 Active Medications Hydrocodone Bitart/Acetaminophen ([place] 5mg-325mg) 1 tablet PO Q6H PRN PRN PRN Reason: MOD-SEVERE PAIN (4-10/10) Aspirin (Aspirin, Baby) 81 mg PO DAILY@0800 [facility] Last Admin: 04/16/18 09:59 Dose: 81 mg Atorvastatin Calcium (Lipitor) 40 mg PO QHS [facility] Last Admin: 04/15/18 20:10 Dose: 40 mg Bisacodyl (Dulcolax) 10 mg RECTAL .PRN X 1 PRN PRN Reason: Constipation [facility] Last Admin: 04/16/18 09:59 Dose: 2 mg [facility]ex [facility] ([facility]ote) [facility] Stop: 04/18/18 17:01 Last Admin: 04/16/18 10:00 Dose: 500 mg Divalproex Sodium (Depakote) 500 mg PO TIWVM [facility] Enoxaparin Sodium (Lovenox) 40 mg SC DAILY [facility] Last Admin: 04/16/18 09:59 Dose: 40 mg Levetiracetam (Keppra Tablet) 1,000 mg PO BID [facility] Stop: 04/18/18 22:01 Last Admin: 04/16/18 09:59 Dose: 1,000 mg Lorazepam (Ativan) 0.25 mg PO QHS PRN PRN PRN Reason: AGITATION Magnesium Hydroxide (Milk Of Magnesia) 30 ml PO .PRN X 1 PRN PRN Reason: Constipation Senna/Docusate Sodium (Senokot-S, Melisa-Colace) 2 tablet PO BID [facility] Last Admin: 04/16/18 09:04 Dose: Not Given Medical Necessity - Tobacco Use Smoking Status: Light Smoker (<10/day) Assessment/Plan Debility s/p Left PICA distribution cerebellar infarct, and resection of glioblastoma, grade IV. Goal of rehab is hinduism of functional independence. Plan: - Physical therapy for gait and balance - Occupational Therapy for ADLs - Speech therapy - As needed analgesics - Bowel protocol - Stroke prevention on ASA, and Statin - DVT prophylaxis: SCDs, Lovenox - Hypertension - currently not on any medications, BP stable, Keep BP < 130/80 mmHg - BENNETT showed no shunting, Thrombus, or evidence of endocarditis - Hyperlipidemia - Continue home dose of atorvastatin, Chol = 192, LDL = 131 - HA1c = 5.8, Goal Hba1c <7% - Brain tumor s/p resection, Keppra 500mg BID for sz ppx, and Decadron 2mg BID, => change Keppra to Depakote 1,000 mg BID x 3 days then increase Depakote to 1, 000mg TID. Keep Keppra on board for 3 days with Depakote, then d/c - Hx of Schizophrenia - stable without psychosis noted at this time - Left eye => Double vision - eye patch as needed, slight Ptosis continue to monitor if need will order eye drops
--- NOTE | 2018-04-16 16:33 | PCM.PN.HOSP ---
Subjective: Patient seen and examined. Was lying comfortably in bed. He had no complaints apart from insomnia. He denies any fever or chills, cough or chest pain, shortness of breath, headache, abdominal pain, diarrhea vomiting. Review of systems otherwise negative. Per nurse, tumor has been confirmed by pathology to be glioblastoma. Family wants to seek treatment options with oncologist and neurosurgeon next Friday. Vitals/I&O's: Vital Signs Temp Pulse Resp BP Pulse Ox 97.5 F L 68 18 121/67 H 94 04/16/18 09:16 04/16/18 09:16 04/16/18 09:16 04/16/18 09:16 04/16/18 09:16 Oxygen Delivery Method Room Air Weight: 180 lb 12.465 oz Body Mass Index (BMI) 27.5 Intake and Output for Last 24 Hours 04/14/18 04/15/18 04/16/18 23:59 23:59 23:59 Intake Total 1280 / 1280 1100 / 1100 240 / 240 Output Total 1600 / 1600 1999 / 1999 Balance -320 / -320 -900 / -900 240 / 240 General: Alert, Oriented x3, Cooperative, No apparent distress HEENT: Atraumatic, PERRLA, EOMI, Normocephalic Oral: Moist Mucosa Neck: Supple, No JVD, Negative Carotid Bruits Lungs: Clear to auscultation, Normal air movement, No rhonchi, No wheeze, No rales Cardiovascular: Regular rate, Regular Rhythm, Normal S1, Normal S2, No murmurs Abdomen: Bowel Sounds Present, Soft, Non Tender, Non-Distended, No Hepato-splenomegaly Extremities: No clubbing, No cyanosis, No edema, Capillary Refill Less than 3 Seconds Skin: - - healing craniotomy incisional scar on forehead. Musculoskeletal: No Tenderness to Palpation of Joints or Extremities Lymphatic: No Cervical, Supraclavicular, or Inguinal Adenopathy Neurological: Cranial nerves II-XII grossly intact, Motor Exam 5/5 strength throughout Psych/Mental Status: Normal Affect, Appropriate, Alert and oriented to time, place, person, mood and affect Current Medications Hydrocodone Bitart/Acetaminophen ([place] 5mg-325mg) 1 tablet PO Q6H PRN PRN PRN Reason: MOD-SEVERE PAIN (4-10) Aspirin (Aspirin, Baby) 81 mg PO DAILY@0800 [facility] Last Admin: 04/16/18 09:59 Dose: 81 mg Atorvastatin Calcium (Lipitor) 40 mg PO QHS [facility] Last Admin: 04/15/18 20:10 Dose: 40 mg Bisacodyl (Dulcolax) 10 mg RECTAL .PRN X 1 PRN PRN Reason: Constipation [facility] Admin: 04/16/18 09:59 Dose: 2 mg Divalproex Sodium ([facility]ote) [facility] Stop: 04/18/18 17:01 Last Admin: 04/16/18 10:00 Dose: 500 mg Divalproex Sodium (Depakote) 500 mg PO TILAM [facility] Enoxaparin Sodium (Lovenox) 40 mg SC DAILY [facility] Last Admin: 04/16/18 09:59 Dose: 40 mg Levetiracetam (Keppra Tablet) 1,000 mg PO BID [facility] Stop: 04/18/18 22:01 Last Admin: 04/16/18 09:59 Dose: 1,000 mg Lorazepam (Ativan) 0.25 mg PO QHS PRN PRN PRN Reason: AGITATION Magnesium Hydroxide (Milk Of Magnesia) 30 ml PO .PRN X 1 PRN PRN Reason: Constipation Senna/Docusate Sodium (Senokot-S, Melisa-Colace) 2 tablet PO BID [facility] Last Admin: 04/16/18 09:04 Dose: Not Given Medical Necessity - Tobacco Use Smoking Status: Light Smoker (<10/day) Assessment/Plan 1. Glioblastoma s/p resection stable. having intensive physical therapy on Keppra for seizure prophylaxis; Now on depakote to help with depressed mood; Keppra to be stopped per neurology management as per neurology family to seek treatment options from neurosurgeon and oncologist next week. on PO dexamethasone on [place] for pain 2. Hyperlipidemia on atorvastatin 3. DVT prophylaxis: lovenox Code Visit Inpatient E&M: 05637 Subs Hosp L2
--- NOTE | 2018-04-16 16:38 | PN_ITS ---
Subjective: Patient seen and examined. Was lying comfortably in bed. He had no complaints apart from insomnia. He denies any fever or chills, cough or chest pain, shortness of breath, headache, abdominal pain, diarrhea vomiting. Review of systems otherwise negative. Per nurse, tumor has been confirmed by pathology to be glioblastoma. Family wants to seek treatment options with oncologist and neurosurgeon next Friday. Vitals/I&O's: Vital Signs Temp Pulse Resp BP Pulse Ox 97.5 F L 68 18 121/67 H 94 04/16/18 09:16 04/16/18 09:16 04/16/18 09:16 04/16/18 09:16 04/16/18 09:16 Oxygen Delivery Method Room Air Weight: 180 lb 12.465 oz Body Mass Index (BMI) 27.5 Intake and Output for Last 24 Hours 04/14/18 04/15/18 04/16/18 23:59 23:59 23:59 Intake Total 1280 / 1280 1100 / 1100 240 / 240 Output Total 1600 / 1600 1999 / 1999 Balance -320 / -320 -900 / -900 240 / 240 General: Alert, Oriented x3, Cooperative, No apparent distress HEENT: Atraumatic, PERRLA, EOMI, Normocephalic Oral: Moist Mucosa Neck: Supple, No JVD, Negative Carotid Bruits Lungs: Clear to auscultation, Normal air movement, No rhonchi, No wheeze, No rales Cardiovascular: Regular rate, Regular Rhythm, Normal S1, Normal S2, No murmurs Abdomen: Bowel Sounds Present, Soft, Non Tender, Non-Distended, No Hepato- splenomegaly Extremities: No clubbing, No cyanosis, No edema, Capillary Refill Less than 3 Seconds Skin: - - healing craniotomy incisional scar on forehead. Musculoskeletal: No Tenderness to Palpation of Joints or Extremities Lymphatic: No Cervical, Supraclavicular, or Inguinal Adenopathy Neurological: Cranial nerves II-XII grossly intact, Motor Exam 5/5 strength throughout Psych/Mental Status: Normal Affect, Appropriate, Alert and oriented to time, place, person, mood and affect Current Medications Hydrocodone Bitart/Acetaminophen ([place] 5mg-325mg) 1 tablet PO Q6H PRN PRN PRN Reason: MOD-SEVERE PAIN (4-10) Aspirin (Aspirin, Baby) 81 mg PO DAILY@0800 [facility] Last Admin: 04/16/18 09:59 Dose: 81 mg Atorvastatin Calcium (Lipitor) 40 mg PO QHS [facility] Last Admin: 04/15/18 20:10 Dose: 40 mg Bisacodyl (Dulcolax) 10 mg RECTAL .PRN X 1 PRN PRN Reason: Constipation [facility] Admin: 04/16/18 09:59 Dose: 2 mg [facility]ivalproex Sodium ([facility]ote) [facility] Stop: 04/18/18 17:01 Last Admin: 04/16/18 10:00 Dose: 500 mg Divalproex Sodium (Depakote) 500 mg PO TINMM [facility] Enoxaparin Sodium (Lovenox) 40 mg SC DAILY [facility] Last Admin: 04/16/18 09:59 Dose: 40 mg Levetiracetam (Keppra Tablet) 1,000 mg PO BID [facility] Stop: 04/18/18 22:01 Last Admin: 04/16/18 09:59 Dose: 1,000 mg Lorazepam (Ativan) 0.25 mg PO QHS PRN PRN PRN Reason: AGITATION Magnesium Hydroxide (Milk Of Magnesia) 30 ml PO .PRN X 1 PRN PRN Reason: Constipation Senna/Docusate Sodium (Senokot-S, Melisa-Colace) 2 tablet PO BID [facility] Last Admin: 04/16/18 09:04 Dose: Not Given Medical Necessity - Tobacco Use Smoking Status: Light Smoker (<10/day) Assessment/Plan 1. Glioblastoma s/p resection * stable. * having intensive physical therapy * on Keppra for seizure prophylaxis; Now on depakote to help with depressed mood ; Keppra to be stopped per neurology * management as per neurology * family to seek treatment options from neurosurgeon and oncologist next week. * on PO dexamethasone * on [place] for pain 2. Hyperlipidemia * on atorvastatin * 3. DVT prophylaxis: lovenox Code Visit Inpatient E&M: 55524 [facility] H[facility] L2
[2018-04-16] MEDS: Senna/Docusate Sodium 1 Tablet 2 TABLET PO (20:35)
[2018-04-16] MEDS: Atorvastatin Calcium 40 MG Tablet PO (20:36)
[2018-04-16 20:51] VITALS: BP 121/70; PULSE 87; RESP 18; TEMP 36.4; O2SAT 96
--- NOTE | 2018-04-17 07:03 | NURSING ---
reviewed and agree with charting of student nurseLucille
[2018-04-17 07:35] VITALS: BP 108/75; PULSE 65; RESP 16; TEMP 36.6; O2SAT 96
[2018-04-17] MEDS: Aspirin 81 MG TAB.CHEW PO (07:43)
[2018-04-17] MEDS: Divalproex Sodium 250 MG Tablet 500 MG PO (07:48)
[2018-04-17] MEDS: Enoxaparin 40 MG/0.4 ML Syringe SC (07:48)
[2018-04-17] MEDS: levETIRAcetam 1,000 MG Tablet 1000 MG PO (07:48)
[2018-04-17] MEDS: Senna/Docusate Sodium 1 Tablet 2 TABLET PO (07:49)
[2018-04-17 11:57] LABS: AST(SGOT) 37 U/L (15-37); Alanine Aminotransfer ALT/SGPT 133 U/L (16-61); Albumin, Serum 2.7 g/dL (3.2-5.0); Alkaline Phosphatase 58 U/L (45-117); Bilirubin, Direct 0.13 mg/dL (0.00-0.30); Globulin 3.6 g/dL (2.2-4.2); Protein, Total 6.3 g/dL (6.4-8.2)
--- NOTE | 2018-04-17 14:24 | CASEMGMT ---
Social Work Staff reporting pt is refusing therapy and stating that he is going to go home today. Pt up in room and has all belongings packed. SW placed phone call to brother Adan and VM left informing of situation and requesting a return call to discuss. Met with pt in room. Pt sitting in chair but fidgeting with belongings and rearranging his packing. Pt informs SW that he plans to go home today. SW explained that brother has been called and VM left and SW will await return call to discuss situation and then return to see pt. Pt is agreeable to plan. RN aware and to notify physician. SW to follow. GABRIEL Santiago
--- NOTE | 2018-04-17 15:06 | NURSING ---
Dr. neri aware ALT level of 133. new order to d/c depakote and increase keppra to 1000 mg bid. Patient refusing therapy and stated he wanted to go home. [facility] rollway worker spoke with patient and left [facility] for brother. DR. neri aware.
--- NOTE | 2018-04-17 15:41 | DCINST_ITS ---
- Discharge Diagnoses Reason(s) for Visit for Discharge Instructions: Debility s/p stroke and GBM You will use the following diet at home:: Regular Your food should be the consistency of: Regular Your liquids should be the consistency of: Regular/Thin Discharge Activity: May Not Drive, May Shower Weight Bearing Status: Full weight bearing Call your doctor if your incision/area has: Continuous Slow Oozing, Sudden Increased Bleeding, Increased Pain/ Swelling, Increased Redness, Foul Smelling Discharge, Swelling at the incision site Call your doctor if you observe: Fever of 101 or Higher, Coldness, Increased Pain, Numbness or Tingling, Change in Color, Inability to urinate, Inability to have a bowel movement, Using more than one pad per hour, Shortness of breath, Dizziness, Fainting spells, Swelling in the ankles, Chest pain, Prolonged hiccoughing, Increased palpitations (irregular heartbeat), Calf discomfort, Uncontrolled pain Suture Line Care: Avoid Pulling/Pushing, Avoid Pinching/Bending Cleanse incision/area with: Soap & Water Allergies/Adverse Reactions: Allergies No Known Allergies Allergy (Verified 04/02/18 15:28) Medications to take at Discharge Aspirin [Aspirin, Baby] 81 mg PO DAILY@0800 #30 tab.chew 04/17/18 Atorvastatin Calcium [Lipitor] 40 mg PO QHS #30 tab 04/17/18 Dexamethasone [Decadron] 2 mg PO BIDCM #12 tab 04/17/18 levETIRAcetam tablet [Keppra tablet] 1,000 mg PO BID #60 tab 04/17/18 The following prescriptions were given: Aspirin [Aspirin, Baby] 81 mg PO DAILY@0800 #30 tab.chew Atorvastatin Calcium [Lipitor] 40 mg PO QHS #30 tab Dexamethasone [Decadron] 2 mg PO BIDCM #12 tab levETIRAcetam tablet [Keppra tablet] 1,000 mg PO BID #60 tab Primary Care Physician: Care Physician,No Primary [Primary Care Provider] - Test Results: Test results from this visit will be discussed in further detail at your follow- up appointment, if applicable. Please Follow Up With: Neurosurgery When: Patient leaving AMA at present Please Follow Up With: Oncology When: Patient leaving AMA at present
--- NOTE | 2018-04-17 15:42 | PCM.RU.DC ---
Rehab Discharge Summary DATE OF ADMISSION: 04/13/18 DATE OF DISCHARGE: 04/17/2018 (patient left AMA) - Rehab Diagnosis Debility post stroke and GBM Discharge Diet: No Restrictions Discharge Activity: May Not Drive, May Shower Weight Bearing Status: Full weight bearing Call your doctor if your incision/area has: Continuous Slow Oozing, Sudden Increased Bleeding, Increased Pain/ Swelling, Increased Redness, Foul Smelling Discharge, Swelling at the incision site Call your doctor if you observe: Fever of 101 or Higher, Coldness, Increased Pain, Numbness or Tingling, Change in Color, Inability to urinate, Inability to have a bowel movement, Using more than one pad per hour, Shortness of breath, Dizziness, Fainting spells, Swelling in the ankles, Chest pain, Prolonged hiccoughing, Increased palpitations (irregular heartbeat), Calf discomfort, Uncontrolled pain Suture Line Care: Avoid Pulling/Pushing, Avoid Pinching/Bending Cleanse incision/area with: Soap & Water Home Medications: Medications to take at Discharge Aspirin [Aspirin, Baby] 81 mg PO DAILY@0800 #30 tab.chew 04/17/18 Atorvastatin Calcium [Lipitor] 40 mg PO QHS #30 tab 04/17/18 Dexamethasone [Decadron] 2 mg PO BIDCM #12 tab 04/17/18 levETIRAcetam tablet [Keppra tablet] 1,000 mg PO BID #60 tab 04/17/18 Following Prescrptions Were Given to Patient: Aspirin [Aspirin, Baby] 81 mg PO DAILY@0800 #30 tab.chew Atorvastatin Calcium [Lipitor] 40 mg PO QHS #30 tab Dexamethasone [Decadron] 2 mg PO BIDCM #12 tab levETIRAcetam tablet [Keppra tablet] 1,000 mg PO BID #60 tab Primary Care Physician: Care Physician,No Primary [Primary Care Provider] - Please Follow Up With: Neurosurgery When: Patient leaving AMA at present Please Follow Up With: Oncology When: Patient leaving AMA at present Rehab Course The patient is a 47 year old CM with PMH HTN, HLD, Schizophrenia admitted to [facility] with debility s/p left PICA infarct and intracranial left frontal tumor s/p craniotomy and resection at [facility], for > 3 hrs therapy daily, with a goal of returning home at ore near his prior level of functional independence. He was admitted to [facility] on 04/03 with nausea, vomiting, and dizziness. MRI showed a left cerebellar infarct, and a left frontal lobe and basal ganglia intraaxial lesions, which was suspicious for a glioblastoma. On 04/07 a left stereotactic craniotomy for tissue removal and biopsy. 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 EEG was done and supported the diagnosis of bilateral cortical dysfunction, worse on the left, there was no epileptiform activity or seizures noted. A BENNETT was preformed and showed no shunting, thrombus or endocarditis. He was started on Keppra for Seizure preventions and Decadron. He had right sided weakness of his upper extremity on admission. required the assistance of one with the use of a walker on admission. Patients pathology report came back as left frontal GBM grade IV, was discussed at length with patient and his family in team meeting, he has follow up with his Neurosurgeon and Oncology on 04/21/18. Following admission to rehab he had a CT head which did not show any hemorrhage and he was started on ASA 81 mg PO once daily. Hospitalist consult was obtained and recommendations followed for medical management. Patient was tolerating therapy well but at present (04/17/18) does not want to continue any further therapy and wants to go home against medical advice, all the risks discussed in detail with the patient, understands the same and still wants to leave AMA. He will be discharged on dexamethasone 2 mg PO BID as per neurosurgery advice with instructions to get further refill from neurosurgery during his follow up appointment on 04/21/18, he was started on Keppra 1000 mg BID by neurosurgery for seizure prevention. After discussion in the team meeting on 04/16/18 () decision was made to change to Depakote due to his impulsivity but had altered LFTs and hence was continued on Keppra, will leave the further decision about AED to neurosurgery since patient is signing out AMA and he needs to follow up with his PCP for altered LFT management. Meaningful Use Info Meaningful Use Diagnoses (Choose all that apply): None applicable
--- NOTE | 2018-04-17 15:51 | DS.PCM_ITS ---
Rehab Discharge Summary DATE OF ADMISSION: 04/13/18 DATE OF DISCHARGE: 04/17/2018 (patient left AMA) - Rehab Diagnosis Debility post stroke and GBM Discharge Diet: No Restrictions Discharge Activity: May Not Drive, May Shower Weight Bearing Status: Full weight bearing Call your doctor if your incision/area has: Continuous Slow Oozing, Sudden Increased Bleeding, Increased Pain/ Swelling, Increased Redness, Foul Smelling Discharge, Swelling at the incision site Call your doctor if you observe: Fever of 101 or Higher, Coldness, Increased Pain, Numbness or Tingling, Change in Color, Inability to urinate, Inability to have a bowel movement, Using more than one pad per hour, Shortness of breath, Dizziness, Fainting spells, Swelling in the ankles, Chest pain, Prolonged hiccoughing, Increased palpitations (irregular heartbeat), Calf discomfort, Uncontrolled pain Suture Line Care: Avoid Pulling/Pushing, Avoid Pinching/Bending Cleanse incision/area with: Soap & Water Home Medications: Medications to take at Discharge Aspirin [Aspirin, Baby] 81 mg PO DAILY@0800 #30 tab.chew 04/17/18 Atorvastatin Calcium [Lipitor] 40 mg PO QHS #30 tab 04/17/18 Dexamethasone [Decadron] 2 mg PO BIDCM #12 tab 04/17/18 levETIRAcetam tablet [Keppra tablet] 1,000 mg PO BID #60 tab 04/17/18 Following Prescrptions Were Given to Patient: Aspirin [Aspirin, Baby] 81 mg PO DAILY@0800 #30 tab.chew Atorvastatin Calcium [Lipitor] 40 mg PO QHS #30 tab Dexamethasone [Decadron] 2 mg PO BIDCM #12 tab levETIRAcetam tablet [Keppra tablet] 1,000 mg PO BID #60 tab Primary Care Physician: Care Physician,No Primary [Primary Care Provider] - Please Follow Up With: Neurosurgery When: Patient leaving AMA at present Please Follow Up With: Oncology When: Patient leaving AMA at present Rehab Course The patient is a 47 year old CM with PMH HTN, HLD, Schizophrenia admitted to [facility] with debility s/p left PICA infarct and intracranial left frontal tumor s/p craniotomy and resection at [facility], for > 3 hrs therapy daily, with a goal of returning home at ore near his prior level of functional independence. He was admitted to [facility] on 04/03 with nausea, vomiting, and dizziness. MRI showed a left cerebellar infarct, and a left frontal lobe and basal ganglia intraaxial lesions, which was suspicious for a glioblastoma. On a left stereotactic craniotomy for tissue removal and biopsy. 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 EEG was done and supported the diagnosis of bilateral cortical dysfunction, worse on the left, there was no epileptiform activity or seizures noted. A BENNETT was preformed and showed no shunting, thrombus or endocarditis. He was started on Keppra for Seizure preventions and Decadron. He had right sided weakness of his upper extremity on admission. required the assistance of one with the use of a walker on admission. Patients pathology report came back as left frontal GBM grade IV, was discussed at length with patient and his family in team meeting, he has follow up with his Neurosurgeon and Oncology on 04/21/18. Following admission to rehab he had a CT head which did not show any hemorrhage and he was started on ASA 81 mg PO once daily. Hospitalist consult was obtained and recommendations followed for medical management. Patient was tolerating therapy well but at present (04/17/18) does not want to continue any further therapy and wants to go home against medical advice, all the risks discussed in detail with the patient, understands the same and still wants to leave AMA. He will be discharged on dexamethasone 2 mg PO BID as per neurosurgery advice with instructions to get further refill from neurosurgery during his follow up appointment on 04/21/18, he was started on Keppra 1000 mg BID by neurosurgery for seizure prevention. After discussion in the team meeting on 04/16/18 () decision was made to change to Depakote due to his impulsivity but had altered LFTs and hence was continued on Keppra, will leave the further decision about AED to neurosurgery since patient is signing out AMA and he needs to follow up with his PCP for altered LFT management. Meaningful Use Info Meaningful Use Diagnoses (Choose all that apply): None applicable
--- NOTE | 2018-04-17 15:54 | NURSING ---
patient sitting in multipurpose room with belongings packed wanting to go home. Dr. neri aware and patient signed AMA papers. Patient explained benefits of rehab and staying, but refused stating he is going home. Prescriptions provided to patient and being filled at this time at [facility] retail pharmacy. Prescription provided to [facility] for walker.
--- NOTE | 2018-04-17 16:27 | NURSING ---
patient received prescriptions that was filled from [facility] retail pharmacy.
--- NOTE | 2018-04-17 16:42 | NURSING ---
[facility] delivered walker to patient.
--- NOTE | 2018-04-17 16:45 | CASEMGMT ---
Social Work Second phone call placed to pt brother a VM left. Received phone call back from Adan and explained to him the situation with pt desiring d/c. Extensive conversation about pt ability in PT/OT concerning walking and ADLS. SW also explained to brother that pt cannot be held against his will, and staff has been unsuccessful in talking pt into remaining in rehab unit. Pt brother does not want pt to be d/c. He would like pt to stay until Friday and go to a followup doctor appointment and then home from there. SW states that if family comes in they may have be able to influence pt in this way but in the end pt cannot be held against his will. Brother informed that physician does not recommend d/c and states pt will need to leave AMA. Walker has been obtained for pt in the event he does return home. Pt family, Domo and Heather and Giacomo and Annmarie will be leaving home at 5:30 to come see pt. Brother Adan will call them and explain pt situation. SW did explain to Adan that if pt stays, he will need to participate in therapy. Pt made aware that his family will be coming in this evening. D/C plan is undetermined at this time as it will depend on family meeting with pt this evening. Nursing aware. GABRIEL Santiago
--- NOTE | 2018-04-17 17:36 | NURSING ---
patient verbalized understanding of discharge instructions, medications and appt with dr. partida on friday04/21/2018. patient sitting in dining area awaiting family.
--- NOTE | 2018-04-17 18:42 | NURSING ---
Brother real here with to take patient home.
--- NOTE | 2018-04-17 18:43 | NURSING ---
Spoke with brother and about discharge instructions, medications, and dr. pryor with dr partida, both verbalized understanding.
--- NOTE | 2018-04-17 19:07 | NURSING ---
pt left the floor at 1850 via w/c per services of rehab staff, family present at side. pt left floor without incident
== END 2018-04-17 18:50 | disposition left against medical advice (07) | DRG 12 ==
PROVIDERS: Admitting Provider Psychiatry & Neurology Neurology; Visit Provider Psychiatry & Neurology Neurology
DX: I69.351 Hemiplegia and hemiparesis following cerebral infarction affecting right dominant side (principal); C71.9 Malignant neoplasm of brain, unspecified; F20.9 Schizophrenia, unspecified; I10 Essential (primary) hypertension; E78.5 Hyperlipidemia, unspecified; F17.200 Nicotine dependence, unspecified, uncomplicated; H02.402 Unspecified ptosis of left eyelid
CPT/HCPCS: 36415; 70450; 80048; 80076; 85027; 85610; 92507; 92523; 97110; 97116; 97162; 97166; 97530; 97535; 97802; 99223; 99406